=== PATIENT | male | born 2005 ===

== ENCOUNTER 2024-08-24 09:00 | Emergency (ER) | payer OTHER, SELFPAY ==
--- NOTE | ~2024-08-24 | XR_ITS ---
EXAMINATION: XR FOOT, RIGHT XR FOOT, LEFT CLINICAL INFORMATION: Dorsal foot pain. Question overlying cellulitis. COMPARISON: None. TECHNIQUE: AP, oblique, and lateral views of the right and left foot. FINDINGS: Right foot: No acute fracture or dislocation. No joint space narrowing or marginal osteophytes. No osseous erosion. No abnormal soft tissue calcification. Mild dorsal forefoot soft tissue swelling. Left foot: No acute fracture or dislocation. No joint space narrowing or marginal osteophytes. No osseous erosion. No abnormal soft tissue calcification. Minimal dorsal forefoot soft tissue swelling. XR/XR foot RT min 3V IMPRESSION: RIGHT FOOT: Mild dorsal forefoot soft tissue swelling. No acute osseous abnormality. LEFT FOOT: Minimal dorsal forefoot soft tissue swelling. No acute osseous abnormality. Electronically signed by: Brody Marinelli MD 08/24/2024 11:28 AM EDT
--- NOTE | ~2024-08-24 | XR_ITS ---
EXAMINATION: XR FOOT, RIGHT XR FOOT, LEFT CLINICAL INFORMATION: Dorsal foot pain. Question overlying cellulitis. COMPARISON: None. TECHNIQUE: AP, oblique, and lateral views of the right and left foot. FINDINGS: Right foot: No acute fracture or dislocation. No joint space narrowing or marginal osteophytes. No osseous erosion. No abnormal soft tissue calcification. Mild dorsal forefoot soft tissue swelling. Left foot: No acute fracture or dislocation. No joint space narrowing or marginal osteophytes. No osseous erosion. No abnormal soft tissue calcification. Minimal dorsal forefoot soft tissue swelling. XR/XR foot LT min 3V IMPRESSION: RIGHT FOOT: Mild dorsal forefoot soft tissue swelling. No acute osseous abnormality. LEFT FOOT: Minimal dorsal forefoot soft tissue swelling. No acute osseous abnormality. Electronically signed by: Brody Marinelli MD 08/24/2024 11:28 AM EDT
[2024-08-24 09:09] VITALS: BP 117/78; PULSE 86; RESP 16; TEMP 37; O2SAT 96; BMI 29.0
--- NOTE | 2024-08-24 09:18 | ED_ITS ---
HPI - Extremity Injury (Lower) General Chief Complaint: Extremity Injury, Lower Stated Complaint: r foot inj Time Seen by Provider: 08/24/24 09:18 Source: patient Mode of arrival: ambulatory Limitations: no limitations History of Present Illness ED Provider: RODOLFO VIERA PA-C HPI Narrative: 19 year old male with no significant pmhx presents to the ED today for evaluation of bilateral foot pain which began after completing 1,000 jumping jacks/ day x1 week. Admits he was performing these on bare feet. Over the last 3 days reports increasing pain to the top of each foot (R>L) with small amount of redness to the top of his right foot. Reports 8/10 pain at present, worse with ambulating. He is not taking any OTC pain meds at home. States that he would not have come to the ED for this if it had not been for his girlfriend urging him to. Denies blunt trauma or injury to the foot. Denies hx of gout or DM. Denies fever, chills, N/V, rashes. Denies recent tick or insect bites. No recent travel/ long car rides. No hx of IVDU. Related Data Allergies Allergy/AdvReac Type Severity Reaction Status Date / Time No Known Allergies Allergy Verified 08/24/24 09:13 Review of Systems Review of Systems: Constitutional: No fever, chills, fatigue, night sweats, weight changes ENT/Mouth: No ear pain, hearing loss, nasal congestion, sinus pain, rhinorrhea, sore throat Eyes: No eye pain, swelling, redness, vision changes, discharge Cardio: No chest pain, palpitations, FERRARI, orthopnea, peripheral edema Pulm: No SOB, cough, sputum, wheezing, dyspnea, hemoptysis GI: No nausea, vomiting, hematemesis, abdominal pain, diarrhea, constipation, hematochezia, melena : No irregular bleeding, dysuria, frequency, urgency, hesitancy, hematuria, flank pain, urinary flow changes, urinary incontinence or retention MSK: No back pain, neck pain, joint pain, myalgias, +b/l foot pain Skin: No lesions, rashes Neuro: No weakness, numbness, paresthesias, LOC, dizziness, headache Psych: No anxiety/panic, depression, SI/HI, AH/VH All other systems reviewed and are negative. [facility] Past Medical History Attestation statement: The following information was validated with the patient. Source: old records reviewed and nursing notes reviewed Social History Social History Advance Directives: No Do you have a plan to hurt others: No Plan Physical Exam Vital Signs: Vital Signs: Last Vital Signs Temp 98.6 F 08/24/24 11:53 Pulse 86 08/24/24 11:53 Resp 16 08/24/24 11:53 BP 117/78 08/24/24 11:53 Pulse Ox 96 08/24/24 11:53 O2 Del Method Room Air 08/24/24 11:53 BMI result Body Mass Index 29.0 vital signs stable General: Well appearing, in no acute distress. Skin: Warm, dry, intact. No rashes or lesions. Head: Normocephalic, atraumatic. EENT: Hearing is intact b/l. Conjunctiva clear. PERRLA. Moist mucous membranes.? Neck: Supple without LAD. FROM. Trachea midline.? Cardiac: Chest wall symmetric. RRR Lungs: Normal respiratory effort without accessory muscle use Ext: +right foot w/ minimal amount of swelling to dorsal aspect with small area of erythema. no warmth. ttp without palpable deformity or crepitus. full ROM intact to all toes and right ankle. left foot with minimal amount of swelling to dorsal aspect without overlying skin changes. non ttp. no warmth/ crepitus/ deformity. FROM to all toes/ left ankle. 2+ pt/dp pulses. no calf tenderness b/l. no tenderness over achilles tendon insertions or plantar fascia. Neuro: AOx3. Normal speech. Ambulating with steady gait. Psych: Appropriate mood and affect. Responds appropriately to questions. Course Course Course Narrative: 1140 -- x-ray bilateral feet without acute fracture, dislocation. There is mild swelling to dorsal feet. Exam is not consistent with developing cellulitis. Advised patient to take Tylenol/ibuprofen at home. Educated on rice therapy. Provided him with postop shoe for comfort. Patient has remained stable throughout ED visit today. Discussed worrisome signs and symptoms and when to return to the ED. All questions answered at this time. Patient is agreeable with disposition and stable for discharge. Medications Administered Discontinued Medications Generic Name Dose Route Start Last Admin Trade Name Freq PRN Reason Stop Dose Admin Acetaminophen 975 mg 08/24/24 09:29 08/24/24 09:45 Acetaminophen 325 Mg Tablet PO 08/24/24 09:30 975 mg ONCE ONE Administration Medical Decision Making Medical Decision Making [facility] Narrative: 19 year old male with no significant pmhx presents to the ED today for evaluation of bilateral foot pain which began after completing 1,000 jumping jacks/ day x1 week. Vital signs stable. Afebrile. He is nontoxic appearing and in NAD. On exam, right foot w/ minimal amount of swelling to dorsal aspect with small area of erythema. no warmth. ttp without palpable deformity or crepitus. full ROM intact to all toes and right ankle. left foot with minimal amount of swelling to dorsal aspect without overlying skin changes. non ttp. no warmth/ crepitus/ deformity. FROM to all toes/ left ankle. 2+ pt/dp pulses. no calf tenderness b/l. no tenderness over achilles tendon insertions or plantar fascia. Differential diagnosis includes early cellulitis, stress fracture, contusion, MSK sprain/strain, arthritis. Presentation not consistent with gout, pseudogout, Lyme arthritis, septic joint, osteomyelitis, Charcot foot, neurovascular compromise, threat to limb, compartment syndrome. Plan for pain control, xrs and re-evaluation. Differential Diagnosis Differential Diagnoses: The differential diagnosis associated with the presentation includes as above. Admission/Observation not indicated. Independent Interpretation I performed an independent interpretation of an: Plain X-Ray Interpretation: XR right foot without acute fracture, agree with radiologist's interpretation. XR left foot without acute fracture, agree with radiologist's interpretation. Radiology Impression Discussion of test interpretation with radiology: I have reviewed the radiologist's reading. Radiologist Impression: EXAMINATION: XR FOOT, RIGHT XR FOOT, LEFT CLINICAL INFORMATION: Dorsal foot pain. Question overlying cellulitis. COMPARISON: None. TECHNIQUE: AP, oblique, and lateral views of the right and left foot. FINDINGS: Right foot: No acute fracture or dislocation. No joint space narrowing or marginal osteophytes. No osseous erosion. No abnormal soft tissue calcification. Mild dorsal forefoot soft tissue swelling. Left foot: No acute fracture or dislocation. No joint space narrowing or marginal osteophytes. No osseous erosion. No abnormal soft tissue calcification. Minimal dorsal forefoot soft tissue swelling. XR/XR foot LT min 3V IMPRESSION: RIGHT FOOT: Mild dorsal forefoot soft tissue swelling. No acute osseous abnormality. LEFT FOOT: Minimal dorsal forefoot soft tissue swelling. No acute osseous abnormality. Electronically signed by: Brody Marinelli MD 08/24/2024 11:28 AM EDT RP Prescription Management I considered prescription management with: Pain Medication (motrin/ tylenol) Social Determinants Patient?s care significantly limited by Social Determinants of Health including: Other Social Determinant of Health Procedures Orthopedic Splinting/Casting Injury #1: Side: right Lower Extremity Injury Location: foot Lower Extremity Immobilizer: post-op shoe Critical Care Time Critical Care Time Critical Care Time: No Discharge Plan Discharge Clinical Impression: Bilateral foot pain Patient Disposition: Home, Self-Care Instructions: Arthralgia (ED) Additional Instructions: You were evaluated in the ED today for foot pain. Your xrays do not reveal acute fracture. I recommend you take 600mg ibuprofen every 6 hours or Tylenol 650mg every 6 hours as needed for pain. If needed, you can alternate these medications so that you take one medication every 3 hours. For example, at noon take ibuprofen, then at 3pm take Tylenol, then at 6pm take ibuprofen. You have also been provided with a post-op shoe for comfort. Practice RICE therapy - rest, ice, compress, elevate the feet. I recommend taking a break from jumping jacks for 1 week to give your feet a break. Whenever you do begin incorporating physical activity again, make sure to wear supportive shoes. If symptoms persist, please follow up with your PCP. Return with new or worsening symptoms. In the case of an emergency call 911. Interventions: ED Discharge Assessment Last Done: 08/24/24 11:53 Discharge Date/Time: 08/24/24 11:54 Print Language: Mongolian
[2024-08-24] MEDS: Acetaminophen 325 MG TABLET 975 MG PO (09:45)
[2024-08-24 11:53] VITALS: BP 117/78; PULSE 86; RESP 16; TEMP 37; O2SAT 96
== END 2024-08-24 11:54 | disposition home or self-care (01) ==
PROVIDERS: Emergency Provider Student in an Organized Health Care Education/Training Program
DX: S99.822A Other specified injuries of left foot, initial encounter (principal); S99.821A Other specified injuries of right foot, initial encounter; M79.672 Pain in left foot; M79.671 Pain in right foot; Y93.A2 Activity, calisthenics; Y93.89 Activity, other specified; Y92.89 Other specified places as the place of occurrence of the external cause; Y99.8 Other external cause status
CPT/HCPCS: 73630; 99283; 99284